=== PATIENT | male | born 1995 | race Caucasian/White ===

== ENCOUNTER 2021-06-20 02:00 | Emergency (ER) | payer OTHER, SELFPAY ==
[2021-06-20 02:10] VITALS: BP 115/70; PULSE 105; RESP 18; TEMP 36.9; O2SAT 100; BMI 25.0
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
[2021-06-20] MEDS: Amoxicillin/Potassium Clav 875 MG TABLET PO (02:49)
[2021-06-20] MEDS: Lidocaine HCl 2 % MPF 5 ML VIAL INFILTRATI (02:49)
[2021-06-20 03:31] VITALS: BP 116/62; PULSE 96; RESP 16; O2SAT 97
== END 2021-06-20 03:33 | disposition home or self-care (01) ==
PROVIDERS: Emergency Provider Emergency Medicine; PCP Internal Medicine
DX: S00.271A Other superficial bite of right eyelid and periocular area, initial encounter (principal); Y04.1XXA Assault by human bite, initial encounter; Y93.9 Activity, unspecified; Y92.9 Unspecified place or not applicable; Y99.9 Unspecified external cause status; Z79.899 Other long term (current) drug therapy
CPT/HCPCS: 12013; 99283

== ENCOUNTER 2021-06-27 11:43 | Emergency (ER) | payer OTHER, SELFPAY ==
[2021-06-27 11:45] VITALS: BP 143/79; PULSE 125; RESP 18; TEMP 37.4; O2SAT 97; BMI 25.7
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
[2021-06-27 12:37] VITALS: BP 128/76; PULSE 94; RESP 18; O2SAT 97
== END 2021-06-27 12:39 | disposition home or self-care (01) ==
PROVIDERS: Emergency Provider Emergency Medicine; PCP Internal Medicine
DX: Z48.02 Encounter for removal of sutures (principal); Z79.899 Other long term (current) drug therapy
CPT/HCPCS: 99284

== ENCOUNTER 2023-05-07 03:15 | Emergency (ER) | payer OTHER, SELFPAY ==
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
[2023-05-07 03:28] VITALS: BP 111/46; BP 122/56; PULSE 118; RESP 18; TEMP 36.9; O2SAT 97; O2SAT 98; BMI 32.7
[2023-05-07 05:07] LABS: Hematocrit 43.8 % (42.0-52.0); Hemoglobin 15.4 g/dl (14.0-18.0); Mean Corpuscular HGB Conc 35.2 g/dl (31.0-36.0); Mean Corpuscular Hemoglobin 29.1 pg (27.0-33.0); Mean Corpuscular Volume 82.8 fL (80.0-98.0); Mean Platelet Volume 8.6 fL (9.4-12.4); Platelet Count 294 X10*3/uL (160-400); Red Blood Count 5.29 X10*6/uL (4.60-5.80); Red Cell Distribution Width 12.9 % (11.0-16.0); White Blood Count 8.3 X10*3/uL (4.8-10.8)
[2023-05-07 05:19] LABS: Alanine Aminotransferase 49 U/L (0-40); Albumin Level 4.7 g/dL (3.5-5.0); Alkaline Phosphatase 56 U/L (39-117); Anion Gap 15 (12-20); Aspartate Amino Transferase 33 U/L (5-37); Bilirubin Total 0.3 mg/dL (0.0-1.0); Blood Urea Nitrogen 10 mg/dL (9-16); Calcium 9.7 mg/dL (8.4-10.2); Carbon Dioxide 23 mmol/L (22-29); Chloride 107 mmol/L (96-108); Creatinine Clr Calc Pharmacy 126.5; Estimated Glomerular Filt Rate > 60; Ethanol 132 mg/dL; Glucose Random 112 mg/dL (60-115); Potassium 3.7 mmol/L (3.3-5.1); Sodium 141 mmol/L (135-145); Total Protein 7.6 g/dL (6.5-8.0)
[2023-05-07 06:46] VITALS: BP 112/47; PULSE 99; RESP 13; TEMP 36.8; O2SAT 97
[2023-05-07 06:57] LABS: Amphetamine Screen Urine Not Detected (Not Detect); Barbiturates, Urine Not Detected (Not Detect); Benzodiazepines Screen Urine Not Detected (Not Detect); Cannabinoid Screen Urine POSITIVE (Not Detect); Cocaine Screen Urine POSITIVE (Not Detect); Fentanyl, urine Not Detected (Not Detect); Opiate Screen Urine Not Detected (Not Detect); Phencyclidine Screen Urine Not Detected (Not Detect)
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
[2023-05-07] MEDS: Ketorolac Tromethamine 30 MG/ML VIAL IM (07:27)
[2023-05-07] MEDS: Lidocaine 4 % Patch ADH..PATCH 1 PATCH TRANSDERMA (07:28)
--- NOTE | 2023-05-07 07:32 | PC.NURSE ---
pt alert+oriented, he reports L lower back pain and neck pain, he denies any other pain. Lido patch placed on his neck, IM toradol given L deltoid. xray taken, results pending. pt's mother at his bedside, theo.
--- NOTE | 2023-05-07 08:36 | PC.NURSE ---
pt cleared for discharge, discharge instructions reviewed with pt and mother at his bedside. pt reports 1-2 back pain, neck pain resolved. pt ambulated to waiting room accompanied by his mother.
== END 2023-05-07 08:36 | disposition home or self-care (01) ==
PROVIDERS: Emergency Provider Emergency Medicine Emergency Medical Services
DX: S13.4XXA Sprain of ligaments of cervical spine, initial encounter (principal); S39.012A Strain of muscle, fascia and tendon of lower back, initial encounter; F10.129 Alcohol abuse with intoxication, unspecified; R00.0 Tachycardia, unspecified; Y90.6 Blood alcohol level of 120-199 mg/100 ml; M54.2 Cervicalgia; R51.9 Headache, unspecified; V47.5XXA Car driver injured in collision with fixed or stationary object in traffic accident, initial encounter; Y93.9 Activity, unspecified; Y92.410 Unspecified street and highway as the place of occurrence of the external cause; Y99.8 Other external cause status; Z79.899 Other long term (current) drug therapy
CPT/HCPCS: 36415; 70450; 71045; 72100; 72125; 80053; 80307; 85027; 93005; 96372; 99284; 99285; J1885

== ENCOUNTER → 2023-05-07 04:48 | Outpatient (BNV) | payer OTHER, SELFPAY | PROVIDERS: Emergency Provider Emergency Medicine Emergency Medical Services; Visit Provider Internal Medicine Cardiovascular Disease | DX: M54.50 Low back pain, unspecified (principal); Z04.3 Encounter for examination and observation following other accident | CPT/HCPCS: 93010 ==

== ENCOUNTER 2024-09-24 17:05 | Outpatient (AMB) | payer OTHER, SELFPAY ==
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
[2024-09-24 17:11] VITALS: BP 122/70; BMI 26.7
--- OUTSIDE RECORDS SUMMARY | 2024-09-24 17:20 | XMS_ITS | Clinical Summary ---
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 Name Role Phone Unavailable Primary Care Provider Unavailabl e Immunizations Immunization Administration Dates Next Due DTP 1993,1993,1993 DTaP 5 07/24/1998,11/14/1994 H1N1 02/09/2009 Hep B, ped/adol 09/29/1995,1993,1993 Hib (PRP-T) 09/29/1995, 4,1993, 994 Influenza Split 03/29/2011,02/12/2010 Influenza, injectable, trivalent 02/09/2009 MMR 07/24/1998,09/28/1994 Meningococcal Conj (Menactra) MCV4P 11/22/2006 OPV 07/24/1998, 4,1993, 994 Tdap 06/07/2005 Family History Relation Name Status Comments Father Alive Father: Healthy Half-Brother Alive Half brother (M ): Healthy, ADD Half-Sister Alive Half sister (M) : ADD Autism Mother Alive Mother: Obesity Social History Tobacco Use Types Packs/Day Years Used Date Smoking Tobacco: Never Assessed Sex and Gender Information Value Date Recorded Sex Assigned at Not on file Legal Sex Male 4:41 PM EDT Gender Identity Not on file Sexual Orientation Not on file Last Filed Vital Signs Vital Sign Reading Time Taken Comments Blood Pressure 110/64 03/29/2011 12:00 AM EST Pulse - - Temperature 36.1 ??C (97 ??F) 08/30/2010 12:00 AM EDT Respiratory Rate - - Oxygen Saturation - - Inhaled Oxygen Concentration - - Weight 68.3 kg (150 lb 8 oz) 03/29/2011 12:00 AM EST Height 178.6 cm (5' 10.3 ) 03/29/2011 12:[address] Body Mass Index 21.41 03/29/2011 12:00 AM EST Plan of Treatment Health Maintenance Due Date Last Done Comments Varicella Vaccines (1 of 2 - 13+ 2-dose series) 2006 DTaP,Tdap,and Td Vaccines (7 - Td or Tdap) 06/07/2015 06/07/2005, 07/24/1998, 11/14/1994, Additional history exists Influenza Vaccines (#1) 2023 03/29/20 11, 02/12/2010, 02/09/2009 COVID-19 Vaccine ( season) 2023 HIB Vaccines Completed 09/29/1995, 11/23, 1993, Additional history exists Hepatitis B Vaccines Completed 09/29/1995, 1993, 1993 IPV Vaccines Completed 07/24/1998, 11/23, 1993, Additional history exists MMR Vaccines Completed 07/24/1998, 09/28/1994 Meningococcal Vaccine Aged Out 11/22/2006 No bryanna sharla eligible based on patient's age to complete this topic HPV Vaccines Aged Out No longer eligi ble based on patient's age to complete this topic Hepatitis A Vaccines Aged Out No long er eligible based on patient's age to complete this topic Men B Vaccine Aged Out No longer elig ible based on patient's age to complete this topic Pneumococcal Vaccine Aged Out No long er eligible based on patient's age to complete this topic
== END 2024-09-24 17:33 | disposition home or self-care (01) ==
LOC: HO.HMCH 17:05
PROVIDERS: Visit Provider Internal Medicine
DX: Z00.00 Encounter for general adult medical examination without abnormal findings (principal)

== ENCOUNTER → 2024-09-24 17:05 | Outpatient (BNVA) | payer OTHER, SELFPAY | PROVIDERS: Visit Provider Internal Medicine | DX: Z00.00 Encounter for general adult medical examination without abnormal findings (principal) | CPT/HCPCS: 96127 ==